=== PATIENT | female | born 1970 | race Caucasian/White ===

== ENCOUNTER 2019-11-09 05:59 | Inpatient (IN) ==
--- NOTE | 2019-10-24 14:22 | PAT Medication Instructions ---
Medication Instructions Date of Service October 24, 2019 Home Medications acetaminophen [Tylenol Extra Strength] 500 mg PO Q6H PRN ibuprofen 200 mg PO Q6H PRN meloxicam 15 mg PO QAM ASK your surgeon for instructions ibuprofen 200 mg PO Q6H PRN meloxicam 15 mg PO QAM Take morning of surgery With a small sip of water, OTHERWISE NOTHING TO EAT OR DRINK AFTER MIDNIGHT: acetaminophen [Tylenol Extra Strength] 500 mg PO Q6H PRN (okay to take up to 4 hours prior to surgery if needed) Other Notes If you have any questions please call us at [phone] or [phone] or [phone] or [phone]
--- NOTE | 2019-10-25 13:36 | Anesthesiology Consultation ---
Date of Service October 25, 2019 Assessment & Plan (1) Encounter for pre-operative examination: Per PAT assessment on 10/24: Travel screen negative. Patient's was COVID positive in 06/2019 (has since had 2 negative results). works at [employer] (per medical at [employer], there are no current COVID positive cases and most recent COVID + inmate was released from isolation 10/14). No current COVID-19 related symptoms. Surgeon arranging preop COVID testing. Awaiting results. Chart Review Chart Review: Acceptable Risk for Surgery (pending surgeon-ordered PCP kevin beltran) and Patient seen in Pre Admission Testing Teaching & Discussion Pre-Anesthesia Teaching/Discussion Notes: Instructed NPO after midnight before surgery,except medications with 15 cc of water. Medication instructions provided according to the PAT guidelines. History Surgery Operation Date: 11/09/19 12:55 Proposed Procedures p C5-C7 Anterior Cervical Discectomy and Fusion - Shay Cerna, Height/Weight Height: 5 ft 5 in Weight: 93.2 kg Allergies Allergy/AdvReac Type Severity Reaction Status Date / Time No Known Allergies Allergy Verified 10/24/19 13:51 Medications Home Medications Medication Instructions Recorded Confirmed Last Taken acetaminophen [Tylenol Extra 500 mg PO Q6H PRN 10/24/19 10/24/19 Unknown Strength] ibuprofen 200 mg PO Q6H PRN 10/24/19 10/24/19 Unknown meloxicam 15 mg PO QAM 10/24/19 10/24/19 Unknown Past Medical History Medical History Herniated cervical disc History of anxiety History of depression History of endometriosis Migraine Obesity Osteoarthritis Exercise / Class Metabolic Activity II 4-5 Yardwork/Stairs/Walk up hill Past Family History Family History Other No family history of adverse response to anesthesia Past Surgical History Surgical History History of colonoscopy History of esophagogastroduodenoscopy (EGD) History of partial hysterectomy History of tooth extraction History of tubal ligation Past Anesthesia History No Hx of Anesthesia Complications and No Family Hx of Anesthesia Complications History of PONV No Hx of PONV and Hx of Motion Sickness STOP BANG Total 0 Social History Smoking Status: Never smoker Do You Dip or Chew Tobacco: No Hx Alcohol Use: Yes alcohol intake frequency: holidays/special occasions only Hx Substance Use: No substance use type: does not use Review of Systems Patient denies chest pain, shortness of breath, dyspnea on exertion, fever, chills, cough, wheezing, palpitations. Physical Exam Vital Signs VITALS BP 110/76 P 56 TEMP 98.4 SP02 98%RA RESP 18 PHYSICAL Full neck and c-spine range of motion. Full TMJ range of motion. TMD 3.5 finger breaths Mallampati Score 2 Dentition: upper partial Lungs: clear throughout to auscultation Cardiac: regular rate and rhythm, no murmurs noted Spine: normal Extremities: no edema Testing Laboratory Results 10/25/19 13:55 10/25/19 13:55 PT 10.9 Seconds (9.0-12.0) 10/25/19 13:55 INR 1.0 (0.9-1.1) 10/25/19 13:55 APTT 28.4 Seconds (21.0-31.0) 10/25/19 13:55 Urine Color Dark Yellow 10/25/19 Unknown Urine Appearance Clear (Clear) 10/25/19 Unknown Urine pH 5.0 (4.5-7.5) 10/25/19 Unknown Ur Specific Stacy 1.038 (1.000-1.030) H 10/25/19 Unknown Urine Protein Negative (Negative) 10/25/19 Unknown Urine Glucose (UA) Negative (Negative) 10/25/19 Unknown Urine Ketones 1+ (Negative) H 10/25/19 Unknown Urine Nitrite Negative (Negative) 10/25/19 Unknown Ur Leukocyte Esterase Negative (Negative) 10/25/19 Unknown Blood Type O Positive 10/25/19 13:55 Antibody Screen NEGATIVE 10/25/19 13:55 Electrocardiogram Date: 10/25/19 Findings: + NSR @ (60) Chest X-Ray Date: 10/25/19 Findings: + NAD
--- NOTE | 2019-10-25 14:24 | XRay Report ---
TWO VIEW CHEST CLINICAL HISTORY: Preoperative examination. FINDINGS: PA and lateral chest radiographs are obtained. No prior studies are available for compariso n at the time of dictation. The cardiomediastinal silhouette is unremarkable. The lungs and pleural spaces are clear. There is no pneumothorax. The bony thorax appears intact. IMPRESSION: No active disease in the chest. ACT 112: Negative or not required by law. Electronically signed by: Praveen Tariq M.D. 10/25/2019 2:22 PM
[2019-10-25 15:47] LABS: Appearance Urine Clear (Clear); Bilirubin Urine Negative (Negative); Blood Urine Negative (Negative); Color Urine Dark Yellow; Glucose Urine UA Negative (Negative); Ketones Urine 1+ (Negative); Leukocyte Esterase Urine Negative (Negative); Nitrite Urine Negative (Negative); Protein Urine Negative (Negative); Specific Gravity Urine 1.038 (1.000-1.030); Urobilinogen Urine Negative (Negative)
[2019-10-25 15:47] LABS: Basophils # (auto) 0.02 K/uL (0-0.2); Basophils % (auto) 0.3 %; Eosinophils # (auto) 0.08 K/uL (0-0.5); Eosinophils % (auto) 1.2 %; Hematocrit (blood only) 38.2 % (37-47); Hemoglobin 12.7 g/dL (12.0-16.0); Immature Granulocytes # (auto) 0.01 K/uL (0.00-0.02); Immature Granulocytes % (auto) 0.1 %; Lymphocytes # (auto) 1.99 K/uL (1.2-3.4); Mean Corpuscular Hemoglobin 29.3 pg (25-34); Mean Corpuscular Hgb Conc 33.2 g/dL (32-36); Mean Platelet Volume 10.7 fL (7.4-10.4); Monocytes # (auto) 0.42 K/uL (0.11-0.59); Monocytes % (auto) 6.1 %; Neutrophils # (auto) 4.34 K/uL (1.4-6.5); Neutrophils % (auto) 63.3 %; Platelet Count 180 K/uL (130-400); RDW Coefficient of Variation 12.6 % (11.5-14.5); RDW Standard Deviation 40.9 fL (36.4-46.3); Red Blood Count 4.34 M/uL (4.2-5.4); White Blood Count 6.86 K/uL (4.8-10.8)
[2019-10-25 15:52] LABS: BUN Creatinine Ratio 17.4 (10-20); Calcium 9.2 mg/dl (8.5-10.1); Creatinine Clr Calc Pharmacy 103.5 ml/min; Est GFR (African American) 109.2; Est GFR (Non-African American) 94.3
[2019-10-25 16:00] LABS: Partial Thromboplastin Time 28.4 Seconds (21.0-31.0); Prothrombin Time 10.9 Seconds (9.0-12.0)
--- NOTE | 2019-10-25 17:35 | Electrocardiogram Report ---
Test Reason : Blood Pressure : / mmHG Vent. Rate : 060 BPM Atrial Rate : 060 BPM P-R Int : 174 ms QRS Dur : 088 ms QT Int : 394 ms P-R-T Axes : 053 075 054 degrees QTc Int : 394 ms Normal sinus rhythm Normal ECG No previous ECGs available Confirmed by Lewis Cornelius ([id number]) on 10/25/2019 5:34:42 PM Referred By: Shay Cerna Confirmed By:Regino Cornelius
[2019-11-09] MEDS ORDERED: CeleBREX 200 MG CAP PO SCH (06:00)
[2019-11-09] MEDS ORDERED: LR 15ML/HR IV SCH (06:00)
[2019-11-09] MEDS ORDERED: ACETAMINOPHEN 500 MG TAB PO SCH (06:00)
[2019-11-09] MEDS ORDERED: CEFAZOLIN 2000MG 2,000 MG/15 ML SYR IV SCH (06:00)
[2019-11-09] MEDS ORDERED: GABAPENTIN 900 MG DOSE PO SCH (06:00)
[2019-11-09] MEDS ORDERED: ONDANSETRON INJ 2 MG/ML 2 ML VIAL IV PRN (06:55)
[2019-11-09] MEDS ORDERED: ATROPINE SULFATE 0.1 MG/ML 10ML SYR IV PRN (06:55)
[2019-11-09] MEDS ORDERED: ePHEDrine sulfate 50 MG/ML AMP IV PRN (06:55)
[2019-11-09] MEDS ORDERED: fentaNYL citrate 100 MCG/2 ML VIAL IV PRN (06:55)
[2019-11-09] MEDS ORDERED: SCOPOLAMINE 1.5 MG TDSY TD ONE (07:02)
[2019-11-09] MEDS ORDERED: BACITRACIN INJ 50,000 UNIT VIAL ONE (07:04)
[2019-11-09] MEDS ORDERED: HYDROmorphone INJ 2 MG/ML SYR/VIAL ONE (07:09)
[2019-11-09] MEDS ORDERED: fentaNYL citrate 100 MCG/2 ML VIAL ONE ×2 (07:09→08:31)
[2019-11-09] MEDS ORDERED: MIDAZOLAM HCL 1 MG/ML 2ML VIAL ONE (07:09)
[2019-11-09] MEDS ORDERED: SCOPOLAMINE 1.5 MG TDSY TD SCH (07:15)
--- NOTE | 2019-11-09 07:32 | History & Physical Bridge Note ---
Date of Service November 09, 2019 History & Physical Bridge Note I have examined the patient, reviewed the History & Physical and in the interval since the performance of the History & Physical I have noted the following changes of clinical significance: no changes noted
--- NOTE | 2019-11-09 07:32 | History & Physical Report ---
Date of Service November 09, 2019 Assessment & Plan (1) Cervical stenosis of spinal canal: Admission and Anticipated Discharge Date Admission Date: C5-C7 anterior cervical discectomy fusion History of Present Illness Chief Complaint: Neck and arm pain Primary Care Provider: Wade Jaramillo MD This is a 48-year-old female presents with chronic persistent neck and arm pain. After failing a course of nonoperative care she is here for surgical intervention. Allergies Allergy/AdvReac Type Severity Reaction Status Date / Time No Known Allergies Allergy Verified 11/09/19 06:35 Home Medications Home Medications Medication Instructions Recorded Confirmed Type acetaminophen [Tylenol Extra 500 mg PO Q6H PRN 10/24/19 11/09/19 History Strength] ibuprofen 200 mg PO Q6H PRN 10/24/19 11/09/19 History meloxicam 15 mg PO QAM 10/24/19 10/24/19 History Past Med/Surg History Medical History Herniated cervical disc History of anxiety History of depression History of endometriosis Migraine Obesity Osteoarthritis Surgical History History of colonoscopy History of esophagogastroduodenoscopy (EGD) History of partial hysterectomy History of tooth extraction History of tubal ligation Family History Other No family history of adverse response to anesthesia Social History Smoking Status: Never smoker Second Hand Exposure: No; Do You Dip or Chew Tobacco: No; Hx Alcohol Use: Yes Hx Substance Use: No Preferred Language: Sami Communication Ability: Effective Tallow Refiner Required: No Beliefs That Will Affect Care: None Current Living Situation: Spouse Feels Safe at Home: Yes Safety Concerns: Feels Safe At This Time Physical Exam Physical Exam: Patient is alert and oriented neurologically intact. Heart regular rate and rhythm. Lungs clear to auscultation. Results & Data ([facility]) Vital Signs (Past 12 Hours) Vital Signs Temp Pulse Resp BP Pulse Ox 11/09/19 06:37 36.7 C 62 20 124/77 99
[2019-11-09] MEDS ORDERED: LARYING-O-JET KIT (LTA) ONE (07:58)
[2019-11-09] MEDS ORDERED: PROPOFOL IV EMULSION 10 MG/ML 100 ML VIAL IV ONE (07:58)
[2019-11-09] MEDS ORDERED: LIDOCAINE HCL 2% 2 ML VIAL/AMP(20MG/ML) INFIL ONE (07:58)
[2019-11-09] MEDS ORDERED: PROPOFOL IV EMULSION 10 MG/ML 20 ML VIAL IV ONE (07:58)
[2019-11-09] MEDS ORDERED: ROCURONIUM BROMIDE 10 MG/ML 5 ML VIAL IV ONE (07:58)
[2019-11-09] MEDS ORDERED: NEOSTIGMINE METHYLSULFATE 1 MG/ML 10ML VIAL ONE (07:59)
[2019-11-09] MEDS ORDERED: GLYCOPYRROLATE 0.2 MG/ML VIAL ONE (07:59)
[2019-11-09] MEDS ORDERED: ONDANSETRON INJ 2 MG/ML 2 ML VIAL ONE (08:16)
[2019-11-09] MEDS ORDERED: DEXAMETHASONE SOD INJ 4 MG/ML VIAL ONE (08:16)
[2019-11-09] MEDS ORDERED: FLOSEAL HEMOSTATIC MATRIX 10ML TOP ONE (08:53)
--- NOTE | 2019-11-09 09:10 | Operative Report ---
Post Operative Report Pre & Post Diagnosis Operation Date: 11/09/19 07:45 Pre-Op Diagnosis: Spinal Stenosis, Cervical Region Post-Op Diagnosis: Spinal Stenosis, Cervical Region I identified the patient and participated in the time-out.: Yes Procedure Operation Date: 11/09/19 07:45 Actual Procedures #1 anterior cervical discectomy bilateral foraminotomies C5-6 and C6-7. #2 anterior cervical arthrodesis C5-6 and C6-7. #3 placement of Spira 7 mm cage filled with DBM at C5-6 and C6-7. #4 application of 5 complete screws across C5-6 and C6-7. Surgeon Shay Cerna, DO Substation Manager Tommie Mckeon Estimated Blood Loss 10 Findings Consistent with Post-Op Diagnosis Specimens None Indications This is a 47-year-old female who presents above-mentioned diagnosis after failing extensive course of nonoperative care is here for the above-mentioned procedure. Description of Procedure Patient was met with identified informed consent obtained. Patient was then taken to the operative suite underwent an patient placed in a supine position on the [place] table the head Elmo head lineman. All bony prominences well- padded eyes inspected to ensure no external pressure placed upon the. This point the anterior cervical spine was prepped and draped in a sterile fashion. The assistance of fluoroscopy identified the see 6 vertebral body and a transverse incision was placed on the right anterior aspect of the cervical spine overlying this region. Sharp dissection with assistance of bipolar electrocautery was performed down to and exposing the anterior cervical spine from C5-C7. Self-retaining retractors placed. I verified my position with fluoroscopy. Then performed a complete discectomy of C5-6 out to the uncovertebral joints bilaterally. [place] distracting pins were utilized to assist in visualization. Removed all posterior annular fibers and longitudinal ligament and performed bilateral foraminotomies for complete decompression. Endplates were then burred to subcortical bleeding bone and a 7 mm Spira cage filled with DBM tapped in position. Then proceeded to C 6 C7. Again self- retaining retractor placed. I did remove all disc out to the uncovertebral's bilaterally removed all posterior annular fibers and longitudinal ligament bilateral foraminotomies performed for complete decompression. Endplates then burred to subcortical any bone and a 7 mm Spira cage filled with DBM tapped in position. Distracting apparatus was removed all anterior osteophytes burred to a smooth cortical surface and a 5 complete screws applied with the assistance of fluoroscopy. Incision was then copiously irrigated explored to ensure no damage to surrounding structures remaining bleeding. 10 round VY drain inserted. Incision was then closed with 2 Vicryl in a fashion of 4 Monocryl for final closure. Steri-Strip sterile dressings placed. Patient will continue PACU stable condition. Please note spinal cord monitoring was utilized throughout the procedure no changes noted. Lastly Tommie perez was present at the entire procedure involved the patient positioning complex portions of the surgery and final skin closure. I attest to the content of the Intraoperative Record and any orders documented therein. Any exceptions are noted below.
--- NOTE | 2019-11-09 09:39 | Fluoroscopy Report ---
FL cervical 2-3V HISTORY: 48 years-old Female C5-C7 ANTERIOR CERVICAL DISCECTOMY AND FUSION COMPARISON: None TECHNIQUE: 2 spot fluoroscopic images of the cervical spine were obtained utilizing 7.0 seconds fluor oscopy time FINDINGS: Anterior plate and screw fusion with discectomy changes at what appears to be the C5-C7 levels. Visua lized hardware appears intact. Satisfactory alignment. Mild multilevel uncovertebral spurring and fac et arthrosis. IMPRESSION: Fluoroscopic assistance as above. Please see operative report for further details. ACT 112: Negative or not required by law. The above report was generated using voice recognition software. It may contain grammatical, syntax o r spelling errors. Electronically signed by: Aquiles Villasenor M.D. 11/09/2019 9:37 AM
--- NOTE | 2019-11-09 10:26 | Anesthesiology Progress Note ---
Date of Service November 09, 2019 Anesthesia Post Procedure Vital Signs Vital Signs: Temp Pulse Pulse Resp BP Pulse Ox 11/09/19 10:20 57 L 14 118/67 99 11/09/19 10:10 53 L 14 117/73 97 11/09/19 10:00 59 L 16 107/66 98 11/09/19 09:50 98.1 F 55 L 16 121/66 99 11/09/19 09:40 56 L 16 125/73 99 11/09/19 09:30 97.2 F L 69 16 120/66 96 11/09/19 06:37 98.1 F 62 20 124/77 99 Transfer of Care Handoff Completed per policy Notes Mental Status: alert / awake / arousable and participated in evaluation Patient Amnestic to Procedure: Yes Nausea / Vomiting: adequately controlled Pain: adequately controlled Airway Patency, RR, SpO2: stable & adequate BP & HR: stable & adequate Hydration State: stable & adequate Anesthetic Complications: no major complications apparent and Pt Satisfied with anesthetic care
[2019-11-09] MEDS ORDERED: PROMETHAZINE HCL 12.5 MG in SODIUM CHLORIDE 0.9% 50 ML IV PRN (10:52)
[2019-11-09] MEDS ORDERED: NALOXONE HCL 0.4 MG/1 ML VIAL/CARP IV PRN (10:52)
[2019-11-09] MEDS ORDERED: RACEPINEPHRINE 2.25% NEBU SOLN 0.5 ML VIAL INH PRN (10:52)
[2019-11-09] MEDS ORDERED: ACETAMINOPHEN 500 MG TAB PO PRN (10:52)
[2019-11-09] MEDS ORDERED: OXYCODONE HCL IR 5 MG TAB (IMMEDIATE RELEASE) PO PRN (10:52)
[2019-11-09] MEDS ORDERED: ONDANSETRON 4 MG OD TAB PO PRN (10:52)
[2019-11-09] MEDS ORDERED: DO NOT ADMINISTER FLU VACCINE PRN (10:52)
[2019-11-09] MEDS ORDERED: HYDROmorphone INJ 0.5 MG/0.5 ML SYR IV PRN (10:52)
[2019-11-09] MEDS ORDERED: LORazepam 0.5 MG TAB PO PRN (10:52)
[2019-11-09] MEDS ORDERED: MAGNESIUM HYDROXIDE SUSP 30 ML UDC PO PRN (10:52)
[2019-11-09] MEDS ORDERED: ALUMINUM/MAGNESIUM SUSP 30 ML UDC PO PRN (10:52)
[2019-11-09] MEDS ORDERED: DO NOT ADMINISTER PNEUMOCOCCAL VACCINE PRN (10:52)
[2019-11-09] MEDS ORDERED: HYDROmorphone INJ 1 MG/ML SYRINGE IV PRN (10:52)
[2019-11-09] MEDS ORDERED: FAMOTIDINE 20 MG TAB PO PRN (10:52)
[2019-11-09] MEDS ORDERED: LORazepam 0.5 MG/1 ML VIAL IV PRN (10:52)
[2019-11-09] MEDS ORDERED: METOCLOPRAMIDE HCL INJ 5 MG/ML 2 ML VIAL IV PRN (10:52)
[2019-11-09] MEDS ORDERED: ACETAMINOPHEN 1,000 MG/100 ML VIAL IV PRN (10:52)
[2019-11-09] MEDS ORDERED: DEXAMETHASONE SOD PHOSPHATE 8 MG in SYRINGE 0 ML IV PRN (10:52)
[2019-11-09] MEDS ORDERED: SOD PHOSPHATE/SOD BIPHOSPHATE ENEMA 132 ML BTL PR PRN (10:52)
[2019-11-09] MEDS: LACTATED RINGER'S 1,000 ML IV SCH ×2 (11:22→19:58)
[2019-11-09] MEDS: CHECK SCOPOLAMINE PATCH PLACEMENT SCH ×3 (14:05→23:40)
[2019-11-09] MEDS: CEFAZOLIN 2000MG 2,000 MG/15 ML SYR IV SCH ×2 (16:14→23:40)
[2019-11-09] MEDS: ONDANSETRON INJ 2 MG/ML 2 ML VIAL IV PRN ×2 (16:26→23:45)
[2019-11-09] MEDS: TRAMADOL HCL 50 MG TABLET PO PRN (19:53)
[2019-11-09] MEDS ORDERED: DOCUSATE SODIUM/SENNA 50/8.6MG TAB PO SCH (21:00)
[2019-11-10] MEDS: CHECK SCOPOLAMINE PATCH PLACEMENT SCH (08:42)
[2019-11-10] MEDS: TRAMADOL HCL 50 MG TABLET PO PRN (08:48)
--- NOTE | 2019-11-10 09:54 | Discharge Summary ---
Date of Service November 10, 2019 Admission HPI Per Admitting Provider This is a 48-year-old female presents with chronic persistent neck and arm pain. After failing a course of nonoperative care she is here for surgical intervention. Principal Diagnosis Cervical spinal stenosis with radiculopathy Discharge Data Allergies Allergy/AdvReac Type Severity Reaction Status Date / Time No Known Allergies Allergy Verified 11/09/19 06:35 Procedures Performed Operation Date: 11/09/19 07:45 Actual Procedures p C5-C7 Anterior Cervical Discectomy and Fusion, Spinal Cord Monitoring(Not Applicable) - Shay Cerna DO Ordered Studies 11/09/19 07:00 FL cervical 2-3V Routine FL fluoroscopy <1hr Routine Hospital Course (1) Cervical stenosis of spinal canal: Patient went anterior cervical discectomy and fusion tolerated so was taken to orthopedic for postop labor postop day #1 she is swallowing well no hoarseness. Arm symptoms markedly improved. Excellent strength testing. Subsequent discharge home. Discharge orders instructions from the chart for further review. Total Time Total Time Spent Total Time Spent (In Minutes): 20 minutes Discharge Plan Discharge Items Patient Disposition: Home - Self-Care Reason For Visit: Spinal Stenosis, Cervical Region Discharge Diagnosis: Cervical spinal stenosis with radiculopathy Activity: As commented below Non-emergency contact: Primary Care Provider Call non-emergency contact if: you have any medication questions Follow-up/Referrals: Wade Jaramillo MD [Primary Care Provider] - Diet: Regular Addtl Attending Provider Instructions: ACTIVITY RECOMMENDATIONS: SELF CARE INSTRUCTIONS AFTER CERVICAL FUSIONS 1. No smoking. Smoking drastically decreases the chance of a solid fusion. 2. No bending, lifting more than 5 pounds, or twisting (roll like a log when turning in bed). 3. You may shower 3 days after surgery. Thoroughly dry wound. Do not soak in the tub. 4. Cervical collar: Must be worn at all times including sleeping. You may remove the brace only to bath, eat and if you are sitting in a recliner. 5. Please walk as much as you can for exercise. Gradually increase the distance that you walk as your endurance increases. SPECIAL CARE INSTRUCTIONS: VERY IMPORTANT TO READ AND REVIEW A. Do not take any anti-inflammatory medications (i.e. Indocin, Advil, Aspirin, Naprosyn, Aleve, Motrin, etc.) as these may inhibit the chance of a solid fusion. Tylenol is okay to take. B. Your surgical incision has been closed with a cosmetic suture under the skin that will dissolve in about 6 weeks. In 14 days, you can use a pair of clean scissors and cut the suture that is left outside of the skin at the ends of your incision. C. Complications are uncommon, but please contact us if you have any signs or symptoms of: 1. wound infection (fever higher than 102.5 degrees F, redness, separation of wound, drainage, or increasing pain from the incision) 2. blood clots in legs (pain, swelling, redness and warmth in legs) 3. urinary tract infection (fever higher than 102.5 degrees, burning upon urination or increased frequency of urination) 4. nerve problems (inability to walk on your toes or heels, numbness, loss of bowel or bladder control) 5. any other symptoms that concern you. D. Please call the office at if you have any concerns or ques tions about your operation or recovery. MANAGING PAIN AFTER SPINAL SURGERY 1. Narcotic medication is intended for short-term use and will be provided for surgical pain. Surgical pain usually lasts for a period of 4-6 weeks. Narcotic medication includes Percocet, Vicodin, Darvocet, Tylenol #3 or Lortab. 2. Longer-term pain is more appropriately treated with non-narcotic medication such as Tylenol ES. 3. Muscle spasm is not appropriately treated with narcotics. Muscle relaxers such as Soma, Flexeril or Skelaxin can be used along with Tylenol ES. 4. Remember that we all live with some "aches and pains". This is not unusual or uncommon after an injury or as we get older. 5. We will provide appropriate medication within the normal guidelines of their prescribed use. We will also be very cautious and aware of potential abuse and extended duration of patients' medication needs. 6. Please allow 2-3 days to process refills. Prescriptions will not be mailed but must be picked up at the office. FOLLOW UP VISIT: Keep your scheduled follow-up appointment. Any questions, please call the office at . Pending Studies at Discharge: No Stand-Alone Forms: My [place], Smoking Cessation Medications and ME Order Prescriptions: New tramadol 50 mg tablet 50 mg PO Q6H PRN (Reason: pain, moderate) Qty: 15 RF: 0 oxycodone 5 mg tablet 5 mg PO Q6H PRN (Reason: pain, severe) Qty: 15 RF: 0 Continued acetaminophen [Tylenol Extra Strength] 500 mg Tablet 500 mg PO Q6H PRN (Reason: Pain) RF: 0 Discontinued meloxicam 15 mg Tablet 15 mg PO QAM RF: 0 ibuprofen 200 mg Tablet 200 mg PO Q6H PRN (Reason: Pain) RF: 0 Discharge Orders: Discharge Order (Routine); Ordered 11/10/19 Ordered By: Shay Cerna Admission Data Admit Date/Time: 11/09/19 10:13 Attending Provider: Shay Cerna Admit Provider: Shay Cerna Primary Care Provider: Wade Jaramillo
[2019-11-10] MEDS ORDERED: POLYETHYLENE (MIRALAX) 17 GM PACK PO SCH (12:00)
[2019-11-11] MEDS ORDERED: bisacodyL 10 MG SUPP PR PRN (09:11)
== END 2019-11-10 11:13 | disposition home or self-care (01) | DRG 473 ==
LOC: 3E 05:59 → ASU 05:59 → OBSVTOIN 10:13